=== PATIENT | male | born 1985 | race Two or more races ===

== ENCOUNTER 2024-03-16 14:12 | Inpatient (IN) | payer OTHER ==
[~2024-03-16] VITALS: Ht 162.6 cm; Wt 70.0 kg
[2024-03-16 16:23] LABS: BASOPHILS % (AUTO) 0.3 % (0.0-2.0); EOSINOPHILS % (AUTO) 0.9 % (1.0-6.0); HEMATOCRIT 45.9 % (41-53); LYMPHOCYTES # (AUTO) 1.5 K/uL (1.0-4.8); LYMPHOCYTES % (AUTO) 24.6 % (22.0-44.0); MEAN CORPUSCULAR HEMOGLOBIN 28.3 pg (26.0-34.0); MEAN CORPUSCULAR HGB CONC 32.7 G/dL (31.0-37.0); MEAN CORPUSCULAR VOLUME 87 fL (80-100); MONOCYTES # (AUTO) 0.5 K/uL (0.1-1.0); MONOCYTES % (AUTO) 8.5 % (2.0-9.0); NEUTROPHILS # (AUTO) 4.1 K/uL (1.8-7.7); NEUTROPHILS % (AUTO) 65.7 % (40.0-70.0); PLATELET COUNT (AUTO) 300 K/uL (150-450); RED CELL DISTRIBUTION WIDTH 14.1 % (11.5-14.5); WHITE BLOOD COUNT (AUTO) 6.2 K/uL (4.5-11.0)
[2024-03-16] MEDS ORDERED: MAGNESIUM HYDROXIDE SUSPENSION 30 ML UDCUP PO PRN (16:30)
[2024-03-16] MEDS ORDERED: ZOLPIDEM TARTRATE 5 MG TABLET PO PRN (16:30)
[2024-03-16 16:34] LABS: ANION GAP 8 mmol/L (8-16); CALCIUM, TOTAL 8.3 mg/dL (8.8-10.5); CARBON DIOXIDE 28 mmol/L (22-29); CHLORIDE 102 mmol/L (98-107); CREATININE 1.01 mg/dL (0.60-1.30); GLOMERULAR FILTR. RATE CALC > 60 mL/min (>60); GLUCOSE,RANDOM 88 mg/dL (70-110); POTASSIUM 4.3 mmol/L (3.5-5.1); SODIUM SERUM 138 mmol/L (136-145); UREA NITROGEN, BLOOD 17 mg/dL (7-18)
[2024-03-16 16:35] LABS: ALCOHOL, BLOOD (SERUM) < 3 mg/dL (0-10)
[2024-03-16 16:40] LABS: ALANINE AMINOTRANSFERASE 85 U/L (12-78); ALBUMIN 3.9 g/dL (3.4-5.0); ALKALINE PHOSPHATASE 59 U/L (46-116); ASPARTATE AMINOTRANSFERASE 43 U/L (15-37); BILIRUBIN,TOTAL 0.7 mg/dL (0.1-1.0); TOTAL PROTEIN, SERUM 7.1 g/dL (6.4-8.2)
[2024-03-16] MEDS: SODIUM CHLORIDE 0.9% 1,000 ML IV ONE (16:41)
[2024-03-16 17:30] VITALS: BP 113/53; PULSE 66; RESP 17; TEMP 98.6; O2SAT 93
[2024-03-16 19:56] VITALS: BP 111/59; PULSE 78; RESP 18; TEMP 98.1; O2SAT 99
[2024-03-17 03:07] VITALS: BP 110/55; PULSE 60; RESP 19; TEMP 97.5; O2SAT 99
[2024-03-17 03:31] LABS: APPEARANCE,URINE CLEAR (CLEAR); BILIRUBIN,URINE NEGATIVE (NEGATIVE); COLOR,URINE LIGHT YELLOW (YELLOW); GLUCOSE, URINE (UA) NEGATIVE (NEGATIVE); KETONES,URINE TRACE mg/dL (NEGATIVE); LEUKOCYTE ESTERASE ,URINE NEGATIVE (NEGATIVE); NITRATE,URINE NEGATIVE (NEGATIVE); OCCULT BLOOD,URINE NEGATIVE (NEGATIVE); PROTEIN,URINE NEGATIVE (NEGATIVE); SPECIFIC GRAVITIY, URINE 1.014 (1.003-1.030); UROBILINOGEN,URINE <=1.0 mg/dL (<=1.0)
[2024-03-17 03:40] LABS: ALCOHOL, URINE DRUG SCREEN NEGATIVE (NEGATIVE); AMPHET/METH SCREEN,URINE POSITIVE (NEGATIVE); BARBITURATE SCREEN, URINE NEGATIVE (NEGATIVE); BENZODIAZEPINES SCREEN,URINE NEGATIVE (NEGATIVE); CANNABINOID SCREEN,URINE POSITIVE (NEGATIVE); COCAINE SCREEN,URINE NEGATIVE (NEGATIVE); METHADONE SCREEN, URINE NEGATIVE (NEGATIVE); OPIATE SCREEN,URINE NEGATIVE (NEGATIVE); PHENCYCLIDINE SCREEN,URINE NEGATIVE (NEGATIVE)
[2024-03-17 07:34] VITALS: BP 115/75; PULSE 58; RESP 18; TEMP 98.3; O2SAT 98
[2024-03-17] MEDS: FAMOTIDINE 20 MG TABLET PO SCH (09:00)
[2024-03-17 15:44] VITALS: BP 129/83; PULSE 79; RESP 18; TEMP 98; O2SAT 99
[2024-03-17 19:50] VITALS: BP 120/79; PULSE 79; RESP 18; TEMP 97.6; O2SAT 96
[2024-03-18 04:10] VITALS: BP 116/69; PULSE 63; RESP 18; TEMP 98.2; O2SAT 97
[2024-03-18] MEDS: ACETAMINOPHEN 325 MG TABLET PO PRN (08:33)
[2024-03-18] MEDS: ONDANSETRON HCL 4 MG/2 ML VIAL IVP PRN (08:41)
[2024-03-18 09:10] VITALS: BP 118/66; PULSE 64; RESP 18; TEMP 97.4; O2SAT 98
[2024-03-18] MEDS: DEXTROSE 5%-0.45% SODIUM CHL 1,000 ML IV SCH (10:27)
[2024-03-18] MEDS: LORazepam 2 MG/ML VIAL IVP PRN (15:48)
[2024-03-18 20:23] VITALS: BP 120/62; PULSE 75; RESP 17; TEMP 98.3; O2SAT 98
[2024-03-19 03:26] VITALS: BP 123/88; PULSE 83; RESP 17; TEMP 97.6; O2SAT 99
[2024-03-19 05:34] VITALS: BP 147/98; PULSE 90; RESP 18; TEMP 98; O2SAT 97
[2024-03-19 06:50] LABS: BASOPHILS % (AUTO) 0.7 % (0.0-2.0); HEMATOCRIT 46.3 % (41-53); HEMOGLOBIN 15.9 g/dL (13.5-17.5); LYMPHOCYTES # (AUTO) 1.9 K/uL (1.0-4.8); LYMPHOCYTES % (AUTO) 32.2 % (22.0-44.0); MEAN CORPUSCULAR HEMOGLOBIN 29.5 pg (26.0-34.0); MEAN CORPUSCULAR HGB CONC 34.3 G/dL (31.0-37.0); MEAN CORPUSCULAR VOLUME 86 fL (80-100); MONOCYTES # (AUTO) 0.7 K/uL (0.1-1.0); MONOCYTES % (AUTO) 12.6 % (2.0-9.0); NEUTROPHILS # (AUTO) 3.1 K/uL (1.8-7.7); NEUTROPHILS % (AUTO) 52.5 % (40.0-70.0); PLATELET COUNT (AUTO) 292 K/uL (150-450); RED BLOOD CELL COUNT(AUTO) 5.38 MIL/uL (4.50-5.90); WHITE BLOOD COUNT (AUTO) 5.8 K/uL (4.5-11.0)
[2024-03-19 07:03] LABS: ALANINE AMINOTRANSFERASE 68 U/L (12-78); ALBUMIN 3.1 g/dL (3.4-5.0); ALKALINE PHOSPHATASE 52 U/L (46-116); ANION GAP 5 mmol/L (8-16); ASPARTATE AMINOTRANSFERASE 27 U/L (15-37); BILIRUBIN,TOTAL 0.5 mg/dL (0.1-1.0); CALCIUM, TOTAL 8.4 mg/dL (8.8-10.5); CARBON DIOXIDE 27 mmol/L (22-29); CHLORIDE 104 mmol/L (98-107); CREATININE 1.03 mg/dL (0.60-1.30); GLOMERULAR FILTR. RATE CALC > 60 mL/min (>60); GLUCOSE,RANDOM 107 mg/dL (70-110); POTASSIUM 3.7 mmol/L (3.5-5.1); SODIUM SERUM 136 mmol/L (136-145); TOTAL PROTEIN, SERUM 6.5 g/dL (6.4-8.2); UREA NITROGEN, BLOOD 10 mg/dL (7-18)
[2024-03-19 07:50] VITALS: BP 121/81; PULSE 63; RESP 18; TEMP 98.4; O2SAT 98
[2024-03-19] MEDS: BENZOCAINE/MENTHOL LOZENGE PO PRN (09:16)
[2024-03-19] MEDS: OLANZapine 5 MG TABLET PO SCH (16:01)
[2024-03-19 20:09] VITALS: BP 113/69; PULSE 62; RESP 18; TEMP 97.9; O2SAT 98
[2024-03-20 05:10] VITALS: BP 113/72; PULSE 60; RESP 18; TEMP 98.9; O2SAT 99
[2024-03-20 08:15] VITALS: BP 117/69; PULSE 64; RESP 18; TEMP 98.4; O2SAT 98
[2024-03-21 04:00] VITALS: BP 122/66; PULSE 66; RESP 18; TEMP 98; O2SAT 98
[2024-03-21] MEDS ORDERED: OLANZapine 10 MG TABLET PO SCH (09:00)
== END 2024-03-21 09:30 | DRG 92 ==
LOC: EMS 14:12 → EDH 16:24 → 6S 17:45
PROVIDERS: ADMIT Internal Medicine; ATTEND Internal Medicine
PROC: GZ56ZZZ Individual Psychotherapy, Supportive (ICD-10-PCS; principal; 2024-03-19)
DX: G92.8 Other toxic encephalopathy (principal); F11.23 Opioid dependence with withdrawal; F15.23 Other stimulant dependence with withdrawal; Z59.00 Homelessness unspecified; F16.90 Hallucinogen use, unspecified, uncomplicated; F41.1 Generalized anxiety disorder; I11.0 Hypertensive heart disease with heart failure; I50.9 Heart failure, unspecified; G89.29 Other chronic pain; S01.81XA Laceration without foreign body of other part of head, initial encounter; Y92.238 Other place in hospital as the place of occurrence of the external cause; X83.8XXA Intentional self-harm by other specified means, initial encounter; Y93.89 Activity, other specified; Y99.8 Other external cause status
CPT/HCPCS: 80048; 80053; 80076; 80307; 81003; 85025; 99285; G0480; J2060; J2405; J7030